=== PATIENT | male | born 1950 | race Two or more races ===

== ENCOUNTER 2019-01-02 11:30 | Day surgery (SDC) | payer BC, OTHER ==
[~2019-01-02] VITALS: Ht 170.2 cm; Wt 82.0 kg
[2019-01-02 12:53] VITALS: BP 122/63; PULSE 65; RESP 16
--- NOTE | 2019-01-02 12:57 | PREAC ---
Date/Time of Note Date/Time of Note DATE: 01/02/19 TIME: 12:56 Anesthesia Eval and Record Evaluation Time Pre-Procedure Interview DATE: 01/02/19 TIME: 12:56 Age 68 Sex male NPO: 8 hrs Preoperative diagnosis Anemia, Planned procedure EGD & Colonoscopy Past Medical History Past Medical History: Includes Cardio: HTN Heme: Anemia Surgery & Anesthesia Issues No known issue Meds Anticoagulation: No Beta Balwinder within 24 hr: No Reason Beta Balwinder not given: Pt. not on B-Balwinder Meds reviewed: Yes Allergies Allergies Reviewed: Yes Labs/Studies Labs Reviewed: Reviewed by anesthesiologist test: N/A Studies: ECG (n/a), CXR (n/a) Pre-procedure Exam Airway: Adequate mouth opening, Adequate thyromental dist Mallampati: Mallampati II Teeth: Normal Lung: Normal Heart: Normal ASA Physical Status ASA physical status: 2 Emergency: None Planned Anesthetic General/MAC: MAC Planned Pain Management Parenteral pain med Pre-operative Attestations Prior to commencing anesthesia and surgery, the patient was re-evaluated, there was verification of: *The patient's identity *The results of appropriate recent lab work and preoperative vital signs *The above evaluation not changing prior to induction *Anesthetic plan, risk benefits, alternative and complications discussed with patient/family; questions answered; patient/family understands, accepts and wishes to proceed. HERI AGUIRRE MD Jan 02, 2019 12:57
[2019-01-02] MEDS ORDERED: BLOOD PRESSURE MED (13:02)
[2019-01-02] MEDS ORDERED: PROPOFOL 40 ML ONE (13:35)
--- NOTE | 2019-01-02 13:36 | PAC ---
Date/Time of Note Date/Time of Note DATE: 01/02/19 TIME: 13:36 Post-Anesthesia Notes Post-Anesthesia Note Last documented vital signs Vital Signs Date Temp Pulse Resp B/P (MAP) Pulse Ox O2 O2 Flow FiO2 Time Delivery Rate 01/02/19 97.2 65 16 122/63 97 Room Air 13:43 (82) Activity: WNL Respiratory function: WNL Cardiovascular function: WNL Mental status: Baseline Pain reasonably controlled: Yes Hydration appropriate: Yes Nausea/Vomiting absent: Yes HERI AGUIRRE MD Jan 02, 2019 13:36
[2019-01-02 13:37] VITALS: BP 97/56; PULSE 58; RESP 16
[2019-01-02 13:47] VITALS: BP 108/73; PULSE 59; RESP 18
[2019-01-02 13:50] VITALS: BP 103/51; PULSE 58; RESP 19
[2019-01-02 13:55] VITALS: BP 120/58; PULSE 59; RESP 20
[2019-01-02 14:00] VITALS: BP 121/62; PULSE 61; RESP 17
== END 2019-01-02 15:01 | disposition home or self-care (01) ==
LOC: GIL 11:30
PROVIDERS: ATTEND Internal Medicine Gastroenterology
DX: K57.30 Diverticulosis of large intestine without perforation or abscess without bleeding (principal); K64.8 Other hemorrhoids; K20.8 Other esophagitis; K29.50 Unspecified chronic gastritis without bleeding; D64.9 Anemia, unspecified; I10 Essential (primary) hypertension
CPT/HCPCS: 43239; 45378; 88305; 88312; Z7610; 88313